=== PATIENT | female | born 1990 | race Caucasian/White ===

== ENCOUNTER 2016-08-02 07:28 | Emergency (ER) | payer OTHER ==
[2016-08-02 07:50] VITALS: BP 128/62; PULSE 78; RESP 18; TEMP 98; O2SAT 97
[2016-08-02] MEDS ORDERED: BENZONATATE 100 MG CAP PO ONE (08:13)
[2016-08-02] MEDS ORDERED: IBUPROFEN 800 MG TAB PO ONE (08:14)
[2016-08-02] MEDS ORDERED: IBUPROFEN 600 MG TAB PO ONE (08:20)
[2016-08-02] MEDS ORDERED: ONDANSETRON DISINTEGRATING 4 MG TAB PO ONE (08:21)
--- NOTE | 2016-08-02 08:25 | UCPHY ---
H & P Time Seen by Provider: 08/02/16 07:44 Patient Type: New HPI/ROS: HPI Sore throat, cough, fever, nausea. 25-year-old female by private vehicle with her boyfriend. Patient reports that she has had a sore throat, nasal congestion, cough, fever, nausea with 1 episode of nonbilious, nonbloody vomiting yesterday and body aches since Saturday. She is asking for a note for work. ROS: Constitutional: As above. No weakness. Eyes: No discharge. No changes in vision. ENT: As above. Respiratory: As above. No shortness of breath. Cardiac: No chest pain, no palpitations. Gastrointestinal: No abdominal pain, as above, no diarrhea. Genitourinary: No hematuria. No dysuria or increased frequency with urination. Musculoskeletal: No back pain. No neck pain. As above. Skin: No rashes. Neurological: No headache. No focal weakness or altered sensation. Past medical history: Denies. Social history: Here with her boyfriend. Physical Exam: General Appearance: Alert, no distress. This patient is responding to questions appropriately and in full sentences. This patient appears well- hydrated and well-nourished. Eyes: Pupils equal and round no pallor or injection. No lid edema, erythema or injection. ENT, Mouth: Mucous membranes are moist. The pharyngeal tissues are unremarkable. No edema or swelling. No asymmetry suggestive of abscess. No erythema or exudates. Nasal congestion with clear rhinorrhea. Neck is clear on auscultation. No voice changes. No stridor. Respiratory: There are no retractions, lungs are clear to auscultation with good air movement bilaterally. Intermittent nonproductive cough. No tachypnea. Cardiovascular: Regular rate and rhythm. No murmur. Gastrointestinal: Abdomen is soft and nontender, no masses, bowel sounds normal. No focal tenderness at McBurney's point. No Love sign. Neurological: Motor sensory function is grossly intact. Cranial nerves are normal. Gait is normal. Skin: Warm and dry, no rashes. Musculoskeletal: Neck is supple and nontender. Mild upper cervical lymphadenopathy. No pain on flexion of the neck. Extremities are symmetrical. All joints range without pain or impingement. Psychiatric: No agitation. No depression. Database: Rapid strep-negative. Rapid flu-negative. EKG: Imaging: Procedures: Emergency department course: Rapid flu and rapid strep test obtained from triage. These are both negative. Her vital signs have been reviewed and are normal. She is afebrile. Her presentation is consistent with influenza. She is out side of the indicated treatment window for Tamiflu. Plan will be to treat her with Hycodan cough syrup, Tessalon perle and ibuprofen. She will also be given a work excuse note. Follow-up and return to Urgent Care precautions have been discussed with her. She feels comfortable going home and I feel she is safe for discharge. Return to Urgent Care precautions reviewed. All of her questions were answered. She was discharged from Urgent Care in good condition. Differential Diagnosis: The differential diagnosis on this patient includes but is not limited to influenza, viral syndrome, viral upper respiratory infection. Streptococcal pharyngitis, other serious bacterial infection unlikely. This represents a partial list of diagnoses considered. These considerations are based on history , physical exam, past history, reassessment and diagnostic testing. Smoking Status: Never smoked Constitutional: Initial Vital Signs Temperature (C) 36.6 C 08/02/16 07:47 Heart Rate 78 08/02/16 07:47 Respiratory Rate 18 08/02/16 07:47 Blood Pressure 128/62 H 08/02/16 07:47 O2 Sat (%) 97 08/02/16 07:47 O2 Delivery Mode Room Air Allergies/Adverse Reactions: sulfamethoxazole [From Bactrim] Allergy (Verified 08/27/15 12:22) trimethoprim [From Bactrim] Allergy (Verified 08/27/15 12:22) Home Medications: Medication Instructions Recorded Benzonatate [Tessalon Pearles] 100 mg PO TID #12 cap 08/02/16 Birthcontrol Pills 08/02/16 HYDROcodone/HOMATROPINE HYCODA 1 tsp PO Q4-6PRN PRN #120 ml 08/02/16 [Hycodan Syrup (RX)] Medical Decision Making - Data Points Laboratory Results: 08/02/16 08/02/16 08/02/16 Unknown 07:50 07:50 Influenza Typ A,B (DFA) NEGATIVE FOR FLU (NEGATIVE) Group A Strep Screen NEGATIVE (NEGATIVE) Group A Strep DNA Pending Medications Given: Discontinued Medications Benzonatate (Tessalon Pearles) 200 mg PO EDNOW ONE Stop: 08/02/16 08:14 Last Admin: 08/02/16 08:32 Dose: 200 mg Ibuprofen (Motrin) 600 mg PO EDNOW ONE Stop: 08/02/16 08:15 Last Admin: 08/02/16 08:32 Dose: 600 mg Ondansetron HCl (Zofran Odt) 4 mg PO EDNOW ONE Stop: 08/02/16 08:22 Last Admin: 08/02/16 08:32 Dose: 4 mg Departure - Departure Disposition: Home, Routine, Self-Care Clinical Impression: Influenza Condition: Good Instructions: Influenza (ED) Additional Instructions: Read and follow provided instructions. Follow-up with your primary care physician in 1-2 days for re-evaluation. Take medication as prescribed. Ibuprofen dosin mg every 6 hours with meals for the next 3 days only. Return to the emergency department for worsening symptoms, high fever, worsening cough or other serious concerns. Referrals: NONE *PRIMARY CARE P,. [Primary Care Provider] - As per Instructions Stand Alone Forms: Work Excuse Prescriptions: Benzonatate [Tessalon Pearles] 100 mg PO TID #12 cap HYDROcodone/HOMATROPINE HYCODA [Hycodan Syrup (RX)] 1 tsp PO Q4-6PRN PRN #120 ml PRN Reason: Cough - PQRS PQRS Measurement: Not applicable.
== END 2016-08-02 08:37 | disposition home or self-care (01) ==
LOC: CED 07:28
DX: J11.1 Influenza due to unidentified influenza virus with other respiratory manifestations (principal)
CPT/HCPCS: 87400-PO; 87880-PO; 99203-PO; G0463-PO